=== PATIENT | female | born 1990 | race Caucasian/White ===

== ENCOUNTER 2021-09-23 11:21 | Emergency (ER) | payer OTHER ==
[~2021-09-23] VITALS: Ht 154.9 cm; Wt 63.5 kg
[2021-09-23] MEDS ORDERED: CYCLOBENZAPRINE10 MG PO (11:51)
[2021-09-23] MEDS ORDERED: IBUPROFEN600 MG PO (11:51)
[2021-09-23] MEDS ORDERED: PYRIDIUM200 MG PO (11:51)
[2021-09-23] MEDS ORDERED: CEPHALEXIN500 MG PO (11:51)
== END 2021-09-23 12:00 | disposition home or self-care (01) ==
LOC: FSED 11:50
DX: N39.0 Urinary tract infection, site not specified (principal); M54.50 Low back pain, unspecified; J45.909 Unspecified asthma, uncomplicated; Z91.040 Latex allergy status
CPT/HCPCS: 99283